=== PATIENT | male | born 1960 | race Asian ===

== ENCOUNTER 2024-10-30 14:54 | Emergency (ER) | payer OTHER ==
[~2024-10-30] VITALS: Ht 180.3 cm; Wt 85.0 kg
[2024-10-30 14:56] VITALS: O2SAT 100
[2024-10-30] MEDS: ACETAMINOPHEN 325MG TABLET PO STA (16:56)
[2024-10-30] MEDS: LIDOCAINE HCL/EPINEPHRINE 1%-EPI 1:100,000 20ML VIAL INFIL ONE (17:04)
[2024-10-30] MEDS: BACITRACIN ZINC OINT UDPKT TOP ONE (17:04)
[2024-10-30] MEDS: KETOROLAC 30MG/ML VIAL IV STA (19:08)
[2024-10-30] MEDS: CEFAZOLIN 1000MG PREMIX 50 ML IV ONE (19:08)
[2024-10-30] MEDS ORDERED: IBUP-2029 MT (20:40)
[2024-10-30] MEDS ORDERED: OXYM30SP26 BOTHNSTRLS (20:40)
[2024-10-30] MEDS ORDERED: AMOX1TAB16 MT (20:40)
[2024-10-30 21:10] VITALS: BP 124/84; PULSE 77; RESP 18; TEMP 36.7; O2SAT 100
== END 2024-10-30 21:19 | disposition home or self-care (01) ==
LOC: ER 15:00
DX: S02.2XXA Fracture of nasal bones, initial encounter for closed fracture (principal); S41.111A Laceration without foreign body of right upper arm, initial encounter; X58.XXXA Exposure to other specified factors, initial encounter; Y93.89 Activity, other specified; Y92.89 Other specified places as the place of occurrence of the external cause; Y99.8 Other external cause status
CPT/HCPCS: 70486; 12014; 96365; 96375; 99285; J0690; J1885; J2004; Z7610 ×2